=== PATIENT | male | born 1965 | race Caucasian/White ===

== ENCOUNTER 2020-12-06 10:28 | Emergency (ER) | payer BC ==
--- NOTE | 2020-12-06 11:15 | EDM.PDOC ---
<Mona Rosenberg - Last Filed: 12/06/20 12:04> ED HPI GENERAL MEDICAL PROBLEM - General Chief Complaint: Back Pain or Injury Stated Complaint: BACK PAIN Time Seen by Provider: 12/06/20 10:48 Source of Information: Reports: Patient History Limitations: Reports: No Limitations - History of Present Illness INITIAL COMMENTS - FREE TEXT/NARRATIVE: Adolfo is a 55 year old male presenting to the ED with complaints of lower back pain. He states his L3-S2 "won't let him walk or breath." He states his horse kicked him in his greater trochanter in September and more recently he slept in his recliner and woke up with the back pain. He describes the pain as sharp when he is active and dull at all other times. He says the pain is constant and radiates into his groin. He admits to the pain being 8-9/10 when active then all other times 4/10. He has tried heating pads, inversion table, and is seeing a chiropractor all without relief. He states he takes 6 Ibuprofen pills multiple times a day for the pain. He states he is having some muscle weakness bilaterally, but more so on his right side. He also mentioned he is now having trouble walking up stairs. He denies having any numbness or tingling. Onset: Other (Some pain started when the patient's horse kicked him on his greater trochanter in September. Since then, he started to have lower back pain after sleeping in a recliner chair approximately one month ago. ) Duration: Constant, Getting Worse Location: Reports: Back (lower), Radiates to (groin) Quality: Reports: Dull, Sharp (when active) Severity: Severe Improves with: Reports: Medication Worsens with: Reports: Breathing, Movement Associated Symptoms: Reports: Weakness (lower extremity weakness particularily on the right side) Lower Back Pain Score (Numeric/FACES): 6 - Related Data Allergies Allergy/AdvReac Type Severity Reaction Status Date / Time No Known Allergies Allergy Verified 12/06/20 10:37 Home Meds: Home Meds Cyclobenzaprine [Flexeril] 10 mg PO TID PRN #20 tab 12/06/20 [Rx] Hydrocodone/Acetaminophen [Hydrocodone-Acetamin 5-325 mg] 1 - 2 each PO Q6HR PRN #20 tablet 12/06/20 [Rx] Ibuprofen [Motrin] 1,200 mg PO Q12H PRN 12/06/20 [History] Past Medical History - Past Surgical History GI Surgical History: Reports: Colonoscopy, Other (See Below) Other GI Surgeries/Procedures: bilateral hernia repair as child at age 5 Male Surgical History: Reports: Vasectomy Endocrine Surgical History: Reports: Other (See Below) Other Endocrine Surgeries/Procedures: thyroid duct cyst removal Musculoskeletal Surgical History: Reports: Other (See Below) Other Musculoskeletal Surgeries/Procedures:: rt femur fracture as a child. hand surgery Social & Family History - Tobacco Use Tobacco Use Status *Q: Never Tobacco User - Caffeine Use Caffeine Use: Reports: Coffee - Recreational Drug Use Recreational Drug Use: No ED ROS GENERAL - Review of Systems Review Of Systems: Comprehensive ROS is negative, except as noted in HPI. ED EXAM,LOWER BACK PAIN/INJURY - Physical Exam Exam Limited By: No Limitations General Appearance: Alert, WD/WN, No Apparent Distress Head: Atraumatic, Normocephalic Neck: Normal Inspection, Supple, Non-Tender, Full Range of Motion Respiratory/Chest: No Respiratory Distress, Lungs Clear, Normal Breath Sounds, No Accessory Muscle Use, Chest Non-Tender Cardiovascular: Normal Peripheral Pulses, Regular Rate, Rhythm, No Edema, No Gallop, No JVD, No Murmur, No Rub GI/Abdominal: Normal Bowel Sounds, Soft, Non-Tender, No Distention Back Exam: Normal Inspection, Full Range of Motion, NT Neurological: Alert, Normal Mood/Affect, Normal Dorsiflexion, CN II-XII Intact, Normal Plantar Flexion, Normal Gait, Normal Reflexes, Other (Normal two point discriminiation. Patient has mild decreased strength on right side. ) Course - Re-Assessments/Exams Free Text/Narrative Re-Assessment/Exam: 12/06/20 11:21 Discussed getting imaging done to assess whether or not he could have some disc pathology. Will reassess once xray is read. 12/06/20 11:38 Patient complaining of pain so he was given Flexeril 10 mg PO, Dilaudid 0.5 mg IV push, Toradol 60 mg IM. 12/06/20 12:04 Xray of lumbar spine revealed: 1. Minimal degenerative change 2. Nothing acute is seen. Radiology was contacted to set up an MRI appointment this afternoon. The patient is aware and will get it done. Patient will wait in ED until radiology comes to get him. Departure - Departure Disposition: Home, Self-Care 01 Clinical Impression: Low back pain Qualifiers: Chronicity: acute Back pain laterality: bilateral Sciatica presence: without sciatica Qualified Code(s): M54.5 - Low back pain - Discharge Information Prescriptions: Cyclobenzaprine [Flexeril] 10 mg PO TID PRN #20 tab PRN Reason: Pain Hydrocodone/Acetaminophen [Hydrocodone-Acetamin 5-325 mg] 1 - 2 each PO Q6HR PRN #20 tablet PRN Reason: Pain Referrals: PCP,None [Primary Care Provider] - Forms: ED Department Discharge Additional Instructions: Take an antiinflammatory such as motrin or aleve. Take the flexeril every 8 hours for pain. You may also take the hydrocodone for pain. Follow up with your doctor. Please return if you are worse. Sepsis Event Note (ED) - Evaluation Sepsis Screening Result: No Definite Risk <Nael Juarez - Last Filed: 12/06/20 14:54> ED ROS GENERAL - Review of Systems Review Of Systems: See Below ED EXAM,LOWER BACK PAIN/INJURY - Physical Exam Exam: See Below Course - Vital Signs Last Recorded V/S: Last Vital Signs Temp 97.1 F 12/06/20 10:38 Pulse 66 12/06/20 14:08 Resp 16 12/06/20 14:08 BP 128/87 12/06/20 14:08 Pulse Ox 96 12/06/20 14:08 - Orders/Labs/Meds Meds: Medications Discontinued Medications Generic Name Dose Route Start Last Admin Trade Name Luis A PRN Reason Stop Dose Admin Cyclobenzaprine HCl 10 mg 12/06/20 11:36 12/06/20 11:41 Flexeril PO 12/06/20 11:37 10 mg ONETIME ONE Administration Hydromorphone HCl 0.5 mg 12/06/20 11:36 12/06/20 11:44 Dilaudid IM 12/06/20 11:37 0.5 mg ONETIME ONE Administration Ketorolac Tromethamine 60 mg 12/06/20 11:36 12/06/20 11:42 Toradol IM 12/06/20 11:37 60 mg ONETIME ONE Administration - Re-Assessments/Exams Free Text/Narrative Re-Assessment/Exam: 12/06/20 14:46 I examined the patient myself and I agree with Mona's assessment and plan. I ordered an x-ray that looks good and a shot of toradol and dilaudid. I also gave him some flexeril. I was able to get him in for an MRI and it shows mild degenerative change. No central canal stenosis or neural foraminal stenosis is appreciated. Departure - Departure Time of Disposition: 14:50 Condition: Good - Discharge Information *PRESCRIPTION DRUG MONITORING PROGRAM REVIEWED*: No *COPY OF PRESCRIPTION DRUG MONITORING REPORT IN PATIENT FRANCK: No Sepsis Event Note (ED) - Focused Exam Vital Signs: Vital Signs Temp Pulse Resp BP Pulse Ox 12/06/20 14:08 66 16 128/87 96 12/06/20 13:05 71 96 12/06/20 12:15 71 97 12/06/20 10:38 97.1 F 81 18 145/86 H 97
[2020-12-06] MEDS ORDERED: Cyclobenzaprine 10 MG Tab PO ONE (11:36)
[2020-12-06] MEDS ORDERED: Ketorolac 60 MG/2 ML SDV IM ONE (11:36)
[2020-12-06] MEDS ORDERED: HYDROmorphone 0.5 MG/0.5 ML Syringe IM ONE (11:36)
--- NOTE | 2020-12-06 11:53 | CR ---
Lumbar spine: AP, lateral and coned-down lateral view was obtained centered to the lumbosacral junction. Comparison: No previous study. Vertebral body heights and disc spaces are maintained. Pedicles are intact. Visualized transverse and spinous processes are intact. Sacroiliac joints are normal. Minimal anterior osteophytes are seen within L4 and L5. Impression: 1. Minimal degenerative change. 2. Nothing acute is seen. Diagnostic code #2
--- NOTE | 2020-12-06 14:29 | MR ---
MRI lumbar spine Technique: T1 weighted axial images were obtained from above the L1-2 disc through the L5-S1 disc. T2 weighted axial images were obtained from above the T12-L1 disc through the L5-S1 disc. T1, T2 and fat-suppressed inversion recovery sagittal images were also obtained. Comparison: Previous lumbar spine plain film exam of 12/06/20, 11:16 AM. Findings: T11-12: Posterior disc is preserved. No central canal stenosis or neural foraminal stenosis. T12-L1: Posterior disc is preserved. No central canal stenosis or neural foraminal stenosis is seen. L1-2: Posterior disc is preserved. No central canal stenosis or neural foraminal stenosis is seen. L2-3: Very minimal posterolateral disc bulges on both sides. No central canal stenosis is seen. Neural foramina are patent where the nerve roots exit. L3-4: Mild posterolateral disc bulges on both sides. No central canal stenosis is seen. Neural foramina are patent where the nerve roots exit. L4-5: Mild diffuse posterior disc bulge is seen to the midline. No central canal stenosis or neural foraminal stenosis is seen. Very slight posterolateral disc bulges are seen on both sides. Very mild apophyseal degenerative change is present. L5-S1: Annular tear is seen posteriorly. Slight physiologic disc bulge is otherwise seen. Neural foramina are patent where the nerve roots exit. No central canal stenosis is appreciated. Conus medullaris and cauda equina show no abnormal signal or mass. Impression: 1. Mild degenerative change as noted above. 2. No central canal stenosis or neural foraminal stenosis is appreciated. Diagnostic code #2
== END 2020-12-06 15:04 | disposition home or self-care (01) ==
LOC: JD.ED 10:28
DX: M54.5 Low back pain (principal); R53.1 Weakness
CPT/HCPCS: 72100; 72148; 96372; 99284; A9270; J1170; J1885; 99283

== ENCOUNTER 2023-02-26 14:25 | Emergency (ER) | payer BC, OTHER ==
[2023-02-26] MEDS ORDERED: Bupivacaine 0.5% 10 ML SDV INJECT ONE (14:40)
[2023-02-26] MEDS ORDERED: Lidocaine 1% 10 ML MDV INJECT ONE (14:40)
== END 2023-02-26 16:42 | disposition home or self-care (01) ==
LOC: JD.ED 14:25
DX: S67.192A Crushing injury of right middle finger, initial encounter (principal); S61.212A Laceration without foreign body of right middle finger without damage to nail, initial encounter; W23.0XXA Caught, crushed, jammed, or pinched between moving objects, initial encounter
CPT/HCPCS: 12002; 99283; J3490